=== PATIENT | male | born 1985 | race Caucasian/White ===

== ENCOUNTER 2018-05-27 10:34 | Emergency (ER) | payer BC, SELFPAY ==
[2018-05-27 10:35] VITALS: PULSE 122; RESP 20; O2SAT 98
--- NOTE | 2018-05-27 10:56 | DI.RAD.S_ITS ---
PROCEDURE: XR CHEST 1V INDICATIONS: chest pain TECHNIQUE: One view of the chest was acquired. COMPARISON: None. FINDINGS: Surgical changes and devices: None. Lungs and pleura: Lungs are clear. No pleural effusions or pneumothorax. Mediastinum: Mediastinal contours appear normal. Heart size is normal. Bones and chest wall: No suspicious bony lesions. Overlying soft tissues appear unremarkable. IMPRESSION: No acute cardiopulmonary disease. Dictated by: Raj Nava M.D. on 05/27/2018 at 13:08 Approved by: Raj Nava M.D. on 05/27/2018 at 13:10
[2018-05-27 11:00] VITALS: BP 127/77; PULSE 82; RESP 19; O2SAT 100
--- NOTE | 2018-05-27 11:04 | PC.NURSE ---
pt reports racing heart rate, felt like after drinking caffeeine, last drink monster drink 2 weeks ago, feeling light headed, with bilateral hands with cold and tingling. denies trauma, injuries, denies vomiting , had loose stool x1. reports epigastric pain. denies fever. denies shortness of breath.
--- NOTE | 2018-05-27 11:07 | PC.NURSE ---
blood drawn by brian welsh
[2018-05-27 11:19] LABS: Prothrombin Time 11.5 SECONDS (10.1-12.7)
[2018-05-27 11:22] LABS: Add Manual Diff / Slide Review NO; Basophils Absolute Auto 100 /uL (0-100); Basophils Percent Auto 0.5 % (0-2); Eosinophils Absolute Auto 100 /uL (0-450); Eosinophils Percent Auto 0.9 % (2-4); Hematocrit 46.2 % (41-53); Hemoglobin 15.7 g/dL (13.5-17.5); Lymphocytes Absolute Auto 1100 /uL (1100-4500); Lymphocytes Percent Auto 10.4 % (25-40); Mean Corpuscular Volume 91.3 fL (80-100); Monocytes Absolute Auto 600 /uL (0-900); Neutrophils Absolute Auto 8300 /uL (1500-7000); Neutrophils Percent Auto 82.2 % (50-75); PTT Partial Thromboplastin Tim 33 SECONDS (26.4-36.2); Platelet Count 299 X10^3/uL (150-400); Red Blood Cell Count 5.06 X10^6/uL (4.5-5.9); Red Cell Distribution Width 12.3 % (11.6-14.8); White Blood Cell Count 10.1 X10^3/uL (4.5-11.0)
[2018-05-27 11:23] LABS: Alanine Aminotransferase 64 IU/L (21-72); Albumin 5.1 g/dL (3.5-5.0); Albumin Globulin Ratio 1.4 (1.0-2.8); Alkaline Phosphatase 56 U/L (38-126); Aspartate Aminotransferase 47 IU/L (17-59); BUN Creatinine Ratio 12.2 (6-22); Bilirubin Total 1.1 mg/dL (0.2-1.3); Blood Urea Nitrogen 11 mg/dL (9-20); Carbon Dioxide 21 mmol/L (22-32); Chloride 101 mmol/L (98-107); Creatine Kinase 132 U/L (55-170); Estimated Glomerular Filt Rate > 60.0 mL/min (>60); Globulin 3.7 g/dL (1.7-4.1); Glucose 107 mg/dL (70-100); HEMOLYSIS 16 (0-50); Lipase 48 U/L (23-300); Potassium 4.2 mmol/L (3.4-5.1); Sodium 137 mmol/L (137-145); Total Protein 8.8 g/dL (6.3-8.2)
[2018-05-27 11:25] VITALS: BP 127/77; PULSE 91; RESP 14; O2SAT 96
[2018-05-27 11:39] LABS: CKMB % Relative Index 0.2 % (1.5-5.0); Creatine Kinase MB 0.28 ng/mL (<2.37)
[2018-05-27 11:40] LABS: Troponin I < 0.012 ng/mL (0.01-0.034)
--- NOTE | 2018-05-27 11:59 | ED.ARRPALP ---
HPI - Arrhythmia/Palpitations General Chief Complaint: Arrhythmia/Palpitations Stated Complaint: periodic heart beating fast, short of breath Time Seen by Provider: 05/27/18 11:46 Source: patient Mode of arrival: ambulatory Limitations: no limitations History of Present Illness HPI narrative: This is a 32-year-old male comes in with complaint of fast heart rate. Patient has complaint of symptoms have been going on off for couple weeks. Yesterday seemed more persistent and had totally resolved. He states it started last night until present. Patient states he will feel little bit dizzy, he does not get tunnel vision but feels like he might pass out. He has not had any episodes of passing out. Feels like he might feel little short of breath. He has not had any chest pain or pressure, he feels like his arms feel very cold sometimes before it starts to happen, he does not break out in a sweat. I have not had any nausea no vomiting no GI or urinary symptoms. Patient states that work has been somewhat stressful and he has had some issues with making decisions and feeling anxious. He did deny any depressive symptoms. Symptoms started around February. Patient does have a new child that was born in October. He denies any other past medical history no prior surgical history. He denies any cardiac pulmonary or embolic history in his family patient states he does sometimes sit a lot in his car but otherwise has not had any prolonged periods of sitting or immobility. He does drink 2-4 alcoholic drinks daily he states these are beer. He stopped smoking several months ago. He does not use any illicit. Related Data Allergies Allergy/AdvReac Type Severity Reaction Status Date / Time No Known Drug Allergies Allergy Verified 05/27/18 10:58 Review of Systems Review of Systems ROS Unobtainable: All systems reviewed & are unremarkable except as noted in HPI and below Constitutional Denies chills, Denies excessive sweating, Denies fatigue, Denies lethargy and Denies weakness ENT Ears, Nose, Mouth, and Throat: Denies vertigo and Denies nasal congestion Cardiovascular Denies acrocyanosis, Denies chest pain, Denies diaphoresis, Denies syncope, Reports rapid heart rate, Denies edema, Denies irregular heart rhythm, Reports lightheadedness, Denies radiating jaw, neck or arm pain, Denies palpitations, Reports dyspnea, Denies dyspnea on exertion and Denies orthopnea Respiratory Denies change in phlegm color, Denies chest congestion, Denies cough, Denies pain on inspiration, Reports dyspnea, Denies dyspnea on exertion, Denies stridor and Denies wheezing Gastrointestinal Gastrointestinal: Denies abdominal pain, Denies change in bowel habits, Denies diarrhea, Denies nausea and Denies vomiting Genitourinary Denies hematuria, Denies flank pain, Denies urinary frequency, Denies urinary incontinence and Denies urinary urgency Musculoskeletal Denies back pain and Denies tingling Integumentary/Breasts Denies rash Neurologic Denies vertigo, Denies syncope, Denies tingling and Denies weakness Psychiatric Reports anxiety, Denies depression, Denies homicidal ideation and Denies suicidal ideation Endocrine Denies excessive sweating, Denies fatigue and Denies palpitations Allergic/Immunologic Denies wheezing [facility] Social History Smoking Status: Former smoker alcohol intake: current substance use type: does not use Exam Narrative Exam Narrative: GENERAL: Alert and oriented x three, well-nourished, well-appearing male in mild distress. HEENT: Head normocephalic, atraumatic, EOMI, pupils reactive, face symmetric, moist mucous membranes NECK: Supple, full range of motion CARDIOVASCULAR: Regular rate and rhythm without murmurs, rubs or gallops. RESPIRATORY: Breath sounds equal bilaterally, no wheezes rales or rhonchi. ABDOMEN: Soft, nontender. Normoactive bowel sounds all 4 quadrants. No guarding or rebound, rigidity, no mass : No CVA tenderness EXTREMITIES: Normal range of motion, no clubbing or edema. 2+ pulses bilateral lower extremities. Neurovascularly intact NEUROLOGICAL: Cranial nerves II through XII grossly intact. Moving all extremities SKIN: Warm, dry, no petechiae, no rashes or lesions. Initial Vital Signs Initial Vital Signs: Vital Signs Pulse Rate 122 H 05/27/18 10:35 Respiratory Rate 20 05/27/18 10:35 Pulse Oximetry 98 05/27/18 10:35 Course Orders Ordered: ED Orders 05/27/18 10:56 XR chest 1V Stat 05/27/18 11:05 Complete Blood Count AUTO DIFF Stat Comprehensive Metabolic Panel Stat D Dimer Stat Lipase Stat Partial Thromboplastin Time Stat Prothrombin Time INR Stat Thyroid Stimulating Hormone Stat Troponin & CK Cardiac Panel Stat 05/27/18 12:42 Urine Culture Stat Urine Microscopic Stat Vital Signs - 8 hr 05/27/18 10:35 05/27/18 11:00 05/27/18 11:25 Pulse Rate 122 H 82 91 H Respiratory Rate 20 19 14 Blood Pressure [Left Arm] 127/77 127/77 Pulse Oximetry 98 100 96 05/27/18 12:09 05/27/18 12:30 Pulse Rate 91 H 94 H Respiratory Rate 17 18 Blood Pressure [Left Arm] 124/82 133/78 Pulse Oximetry 100 100 MDM - Arrhythmia/Palpitations Lab Data Attestation: I reviewed the patient's lab results. Result diagrams: 05/27/18 11:05 05/27/18 11:05 Lab Results 05/27/18 05/27/18 05/27/18 Range/Units 11:05 11:05 11:05 WBC 10.1 (4.5-11.0) X10^3/uL RBC 5.06 (4.5-5.9) X10^6/uL Hgb 15.7 (13.5-17.5) g/dL Hct 46.2 (41-53) % MCV 91.3 (80-100) fL MCH 31.0 (26-34) PG MCHC 34.0 (30-36) % RDW 12.3 (11.6-14.8) % Plt Count 299 (150-400) X10^3/uL Neut % (Auto) 82.2 H (50-75) % Lymph % (Auto) 10.4 L (25-40) % [place] % (Auto) 6.0 (3-14) % Eos % (Auto) 0.9 L (2-4) % Baso % (Auto) 0.5 (0-2) % Neut # (Auto) 8300 H (3978-8000) /uL Lymph # (Auto) 1100 (2479-6257) /uL [place] # (Auto) 600 (0-900) /uL Eos # (Auto) 100 (0-450) /uL Baso # (Auto) 100 (0-100) /uL PT 11.5 (10.1-12.7) SECONDS INR 1.0 (0.9-1.3) APTT 33 (26.4-36.2) SECONDS D-Dimer (<230) ng/mL Sodium 137 (137-145) mmol/L Potassium 4.2 (3.4-5.1) mmol/L Chloride 101 (98-107) mmol/L Carbon Dioxide 21 L (22-32) mmol/L BUN 11 (9-20) mg/dL Creatinine 0.90 (0.66-1.25) mg/dL Estimated GFR > 60.0 (>60) mL/min BUN/Creatinine Ratio 12.2 (6-22) Glucose 107 H (70-100) mg/dL Calcium 10.0 (8.4-10.2) mg/dL Total Bilirubin 1.1 (0.2-1.3) mg/dL AST 47 (17-59) IU/L ALT 64 (21-72) IU/L Alkaline Phosphatase 56 (38-126) U/L Total Creatine Kinase 132 (55-170) U/L CK-MB (CK-2) 0.28 (<2.37) ng/mL CK-MB (CK-2) Rel Index 0.2 L (1.5-5.0) % Troponin I < 0.012 (0.01-0.034) ng/mL Total Protein 8.8 H (6.3-8.2) g/dL Albumin 5.1 H (3.5-5.0) g/dL Globulin 3.7 (1.7-4.1) g/dL Albumin/Globulin Ratio 1.4 (1.0-2.8) Lipase 48 (23-300) U/L TSH (0.47-4.68) uIU/mL Urine RBC (0-5/HPF) Urine WBC (0-5/HPF) Ur Squamous Epith Cells Urine Bacteria (None) Ur Culture Indicated? 05/27/18 05/27/18 05/27/18 Range/Units 11:05 11:05 12:42 WBC (4.5-11.0) X10^3/uL RBC (4.5-5.9) X10^6/uL Hgb (13.5-17.5) g/dL Hct (41-53) % MCV (80-100) fL MCH (26-34) PG MCHC (30-36) % RDW (11.6-14.8) % Plt Count (150-400) X10^3/uL Neut % (Auto) (50-75) % Lymph % (Auto) (25-40) % [place] % (Auto) (3-14) % Eos % (Auto) (2-4) % Baso % (Auto) (0-2) % Neut # (Auto) (9522-8331) /uL Lymph # (Auto) (8209-1157) /uL [place] # (Auto) (0-900) /uL Eos # (Auto) (0-450) /uL Baso # (Auto) (0-100) /uL PT (10.1-12.7) SECONDS INR (0.9-1.3) APTT (26.4-36.2) SECONDS D-Dimer < 200 (<230) ng/mL Sodium (137-145) mmol/L Potassium (3.4-5.1) mmol/L Chloride (98-107) mmol/L Carbon Dioxide (22-32) mmol/L BUN (9-20) mg/dL Creatinine (0.66-1.25) mg/dL Estimated GFR (>60) mL/min BUN/Creatinine Ratio (6-22) Glucose (70-100) mg/dL Calcium (8.4-10.2) mg/dL Total Bilirubin (0.2-1.3) mg/dL AST (17-59) IU/L ALT (21-72) IU/L Alkaline Phosphatase (38-126) U/L Total Creatine Kinase (55-170) U/L CK-MB (CK-2) (<2.37) ng/mL CK-MB (CK-2) Rel Index (1.5-5.0) % Troponin I (0.01-0.034) ng/mL Total Protein (6.3-8.2) g/dL Albumin (3.5-5.0) g/dL Globulin (1.7-4.1) g/dL Albumin/Globulin Ratio (1.0-2.8) Lipase (23-300) U/L TSH 0.96 (0.47-4.68) uIU/mL Urine RBC 0-1/hpf (0-5/HPF) Urine WBC 0-1/hpf (0-5/HPF) Ur Squamous Epith Cells 0-1 /hpf Urine Bacteria None seen (None) Ur Culture Indicated? Specimen cultured Urine Dip Bedside Urine Glucose Negative Bedside Urine Bilirubin - Negative Bedside Urine Ketone ++ 40 Urine Specific [place] 1.010 Bedside Urine Occult Blood - Negative Bedside Urine pH 6.5 Bedside Urine Urobilinogen - Negative Bedside Urine Nitrite - Negative Bedside Urine Leukocytes +/- 15 Esterase Imaging Data Chest x-ray: Attestation: I personally reviewed and interpreted this imaging study as follows: My impression: nap Radiologist's impression: Delbert Ladd 32 M [address] [address] XRay Report Signed Patient: Delbert Ladd LMR#: [id number] : 1985Acct:[id number] Age/Sex: 32 / MDate of Service: 05/27/18 Loc: ED Accession Number: [id number] Procedure: XR chest 1V Ordering Provider: Vi Knott D.O. PROCEDURE: XR CHEST 1V INDICATIONS: chest pain TECHNIQUE: One view of the chest was acquired. COMPARISON: None. FINDINGS: Surgical changes and devices: None. Lungs and pleura: Lungs are clear. No pleural effusions or pneumothorax. Mediastinum: Mediastinal contours appear normal. Heart size is normal. Bones and chest wall: No suspicious bony lesions. Overlying soft tissues appear unremarkable. IMPRESSION: No acute cardiopulmonary disease. Dictated by: Raj Nava M.D. on 05/27/2018 at 13:08 Approved by: Raj Nava M.D. on 05/27/2018 at 13:10 ECG Data Attestation: I personally reviewed and interpreted this ECG as follows: Interpretation: Sinus tachycardia rate of 107, [place] 127 QRS 97 and QTC of 373. Discharge Plan Departure Patient Disposition: Home Clinical Impression: Tachycardia Discharge Date/Time: 05/27/18 13:11 Interventions: ED Discharge Assessment Last Done: 05/27/18 13:11 Instructions: DI for Tachycardia Activity Restrictions/Additional Instructions: Follow-up with your primary care physician in the next 3-5 days for recheck. Call Tuesday morning for an appointment and let them know your seen in the emergency department. Make sure you have plenty of hydration and you are drinking plenty of fluids. Your TSH is still pending, discuss with your physician to get these results. Discuss with your physician about whether Holter monitor would be appropriate. Return to the emergency department for fevers greater than 100.4, new shortness of breath that is persistent, persistently elevated heart rate, passing out, persistent vomiting, black or bloody stools, new or concerning symptoms. Referrals: Justice Vera MD [Primary Care Provider] -
[2018-05-27 12:09] VITALS: BP 124/82; PULSE 91; RESP 17; O2SAT 100
[2018-05-27 12:23] LABS: D Dimer < 200 ng/mL (<230)
[2018-05-27 12:30] VITALS: BP 133/78; PULSE 94; RESP 18; O2SAT 100
[2018-05-27 12:52] LABS: Thyroid Stimulating Hormone 0.96 uIU/mL (0.47-4.68)
[2018-05-27 13:03] LABS: Bacteria Urine None Seen; Culture Indicated Urine Specimen Cultured; RBC Urine 0-1/HPF (0-5/HPF); Squamous Epithelial Cell Urine 0-1 /HPF; WBC Urine 0-1/HPF (0-5/HPF)
== END 2018-05-27 13:11 | disposition home or self-care (01) ==
PROVIDERS: Emergency Provider Emergency Medicine; PCP Family Medicine
DX: R00.0 Tachycardia, unspecified (principal)
CPT/HCPCS: 36415; 71045; 80053; 81003; 81015; 82550; 82553; 83690; 84443; 84484; 85025; 85379; 85610; 85730; 87086; 93005; 99283; 99285

== ENCOUNTER → 2018-06-28 13:54 | Outpatient (CLI) | payer BC, SELFPAY ==
--- NOTE | 2018-07-13 08:18 | PM.CARDMON.1 ---
[employer] Report Referral & Results Date Patient Seen: 06/28/18 Requesting provider: Justice Vera Indication: Tachycardia Duration of monitoring (days): 7 Diary information: Patient had no diary entries 3 patient triggered events were associated with sinus rhythm Data: Minimum heart rate identified was 52 beats per minute at 05:50 on 07/05/2018 Maximum heart rate was 186 beats per minute at 12:47 on 07/04/2018 No PVCs were identified Less than 1% of identified beats were supraventricular ectopic in origin Impression: Normal medical front desk coordinator.
== END ==
PROVIDERS: PCP Family Medicine; Visit Provider Family Medicine
DX: R00.0 Tachycardia, unspecified (principal)
CPT/HCPCS: 0296T; 0298T

== ENCOUNTER → 2021-12-24 16:31 | Outpatient (CLI) | payer BC, SELFPAY ==
[2021-12-24 17:40] LABS: Add Manual Diff / Slide Review NO; Basophils Absolute Auto 100 /uL (0-100); Basophils Percent Auto 0.9 % (0-2); Eosinophils Absolute Auto 200 /uL (0-450); Eosinophils Percent Auto 3.8 % (2-4); Hematocrit 45.2 % (41-53); Hemoglobin 15.6 g/dL (13.5-17.5); Lymphocytes Absolute Auto 1500 /uL (1100-4500); Lymphocytes Percent Auto 24.8 % (25-40); Mean Corpuscular HGB Conc 34.6 % (30-36); Mean Corpuscular Volume 95.4 fL (80-100); Monocytes Absolute Auto 800 /uL (0-900); Monocytes Percent Auto 13.4 % (3-14); Neutrophils Absolute Auto 3400 /uL (1500-7000); Neutrophils Percent Auto 57.1 % (50-75); Platelet Count 226 X10^3/uL (150-400); Red Blood Cell Count 4.74 X10^6/uL (4.5-5.9); Red Cell Distribution Width 13.8 % (11.6-14.8); White Blood Cell Count 5.9 X10^3/uL (4.5-11.0)
[2021-12-24 17:56] LABS: Alanine Aminotransferase 158 IU/L (<50); Albumin 4.9 g/dL (3.5-5.0); Albumin Globulin Ratio 1.3 (1.0-2.8); Alkaline Phosphatase 59 U/L (38-126); Aspartate Aminotransferase 132 IU/L (17-59); BUN Creatinine Ratio 11.2 (6-22); Bilirubin Total 0.4 mg/dL (0.2-1.3); Blood Urea Nitrogen 10 mg/dL (9-20); Calcium 9.9 mg/dL (8.4-10.2); Carbon Dioxide 28 mmol/L (22-32); Chloride 99 mmol/L (98-107); Estimated Glomerular Filt Rate > 60 mL/min (>60); Globulin 3.7 g/dL (1.7-4.1); Glucose 78 mg/dL (70-100); HEMOLYSIS 18 (0-50); Potassium 4.3 mmol/L (3.4-5.1); Sodium 138 mmol/L (137-145); Total Protein 8.6 g/dL (6.3-8.2)
[2021-12-26 10:29] LABS: Varicella IgG Antibody 2027 index (Immune >165)
== END ==
PROVIDERS: PCP Family Medicine; Referring Provider Family Medicine; Visit Provider Family Medicine
DX: R77.9 Abnormality of plasma protein, unspecified (principal)
CPT/HCPCS: 36415; 80053; 84443; 85025; 86787

== ENCOUNTER → 2022-03-16 09:36 | Outpatient (CLI) | payer BC, SELFPAY ==
[2022-03-16 11:23] LABS: Alanine Aminotransferase 84 IU/L (<50); Albumin 5.2 g/dL (3.5-5.0); Albumin Globulin Ratio 1.3 (1.0-2.8); Alkaline Phosphatase 69 U/L (38-126); Aspartate Aminotransferase 52 IU/L (17-59); BUN Creatinine Ratio 11.8 (6-22); Blood Urea Nitrogen 11 mg/dL (9-20); Calcium 10.2 mg/dL (8.4-10.2); Carbon Dioxide 28 mmol/L (22-32); Chloride 96 mmol/L (98-107); Cholesterol 255 mg/dL (140-199); Estimated Glomerular Filt Rate > 60 mL/min (>60); Glucose 88 mg/dL (70-100); HDL Cholesterol 76 mg/dL (40-60); HEMOLYSIS < 15 (0-50); LDL Cholesterol Calculated 144 mg/dL (<100); Potassium 4.4 mmol/L (3.4-5.1); Sodium 138 mmol/L (137-145); Total Protein 9.2 g/dL (6.3-8.2); Triglycerides 175 mg/dL (35-150)
== END ==
PROVIDERS: PCP Family Medicine; Referring Provider Family Medicine; Visit Provider Family Medicine
DX: Z13.220 Encounter for screening for lipoid disorders (principal); R74.8 Abnormal levels of other serum enzymes
CPT/HCPCS: 36415; 80053; 80061